=== PATIENT | female | born 2000 | race Caucasian/White ===

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

== ENCOUNTER 2019-01-13 10:58 | Emergency (ER) | payer OTHER ==
[2019-01-13 11:11] VITALS: BP 111/68
--- NOTE | 2019-01-13 12:15 | ED Physician Documentation ---
PD HPI URI - Stated complaint Stated Complaint: SORE THROAT - Chief complaint Chief Complaint: Heent - History obtained from History obtained from: Patient - History of Present Illness Timing - onset: Yesterday Timing duration: Days (2) Timing details: Abrupt onset, Still present Associated symptoms: Fever, Sore throat. No: Nasal congestion, Rhinorrhea, Dry cough, NVD Contributing factors: No: Sick contact Similar symptoms before: Diagnosis (had not had strep throat since teenager) Recently seen: Not recently seen Review of Systems Constitutional: reports: Fever, Chills Nose: denies: Rhinorrhea / runny nose, Congestion Throat: reports: Sore throat Respiratory: denies: Cough GI: denies: Nausea, Vomiting, Diarrhea Skin: denies: Rash, Lesions PD PAST MEDICAL HISTORY - Past Medical History Past Medical History: No Cardiovascular: None Respiratory: None Endocrine/Autoimmune: None - Past Surgical History Past Surgical History: No - Present Medications Home Medications: Ambulatory Orders Medication Instructions Recorded Confirmed Bcp Patch 01/13/19 Cephalexin [Keflex] 500 mg PO TID #21 capsule 01/13/19 Dexamethasone [Decadron] 4 mg PO DAILY #5 tablet 01/13/19 Hydrocodone/Acetaminophen [[place] 1 each PO Q6H PRN #12 tablet 01/13/19 5-325 Tablet] - Allergies Allergies/Adverse Reactions: Allergies Allergy/AdvReac Type Severity Reaction Status Date / Time Penicillins Allergy Unknown Verified 11/20/16 18:02 - Social History Does the pt smoke?: No Smoking Status: Never smoker Does the pt drink ETOH?: No Does the pt have substance abuse?: No - Immunizations Immunizations are current?: Yes PD ED PE NORMAL - Vitals Vital signs reviewed: Yes - General General: Alert and oriented X 3, No acute distress, Well developed/nourished - HEENT HEENT: Ears normal. No: Pharynx benign (marked erhythema with exudate and swelling, particularly left tonsil area. No peritonsillar edema per se. ) - Neck Neck: Supple, no meningeal sign, No adenopathy - Cardiac Cardiac: RRR, No murmur - Respiratory Respiratory: Clear bilaterally - Derm Derm: Normal color, Warm and dry - Extremities Extremities: No tenderness to palpate, Normal ROM s pain - Neuro Neuro: Alert and oriented X 3, No motor deficit, Normal speech Results - Vitals Vitals: Oxygen O2 Source Room air - Labs Labs: Microbiology 01/13/19 11:15 Group A Strep Throat Culture - Final Throat MIXED OROPHARYNGEAL RAMON PRESENT. NO BETA STREP PRESENT IN CULTURE. Laboratory Tests 01/13/19 11:15 Group A Strep Rapid Negative PD MEDICAL DECISION MAKING - ED course Complexity details: considered differential (this looks and acts like strep (02/19 [facility]) so will treat with abx pending culture. ), d/w patient Departure - Departure Disposition: 01 Home, Self Care Clinical Impression: Acute pharyngitis Qualifiers: Pharyngitis/tonsillitis etiology: unspecified etiology Qualified Code(s): J02.9 - Acute pharyngitis, unspecified Condition: Stable Record reviewed to determine appropriate education?: Yes Instructions: ED Strep Pharyngitis Poss Follow-Up: Destini Esqueda DO [Primary Care Provider] - Prescriptions: Cephalexin [Keflex] 500 mg PO TID #21 capsule Dexamethasone [Decadron] 4 mg PO DAILY #5 tablet Hydrocodone/Acetaminophen [[place] 5-325 Tablet] 1 each PO Q6H PRN #12 tablet PRN Reason: Pain Comments: This looks and sounds like a bacterial pharyngitis. We will treated as such with cephalexin and antibiotic for a week. Decadron steroid anti-inflammatory will help with the pain and swelling. Add Tylenol or hydrocodone if needed for pain short-term. It should be improving over a couple of days. 1-2 days off work and school as needed. Should be considered less infectious after a day on the antibiotics. Recheck if not improved over the next 3-5 days. Forms: Activity restrictions Discharge Date/Time: 01/13/19 12:42
[2019-01-13] MEDS ORDERED: IBUPROFEN 600 MG TABLET PO STA (12:22)
[2019-01-13] MEDS ORDERED: cephALEXin 250 MG CAPSULE PO STA (12:22)
[2019-01-13] MEDS ORDERED: DEXAMETHASONE 10 MG/ML VIAL PO STA (12:22)
== END 2019-01-13 12:42 | disposition home or self-care (01) ==
LOC: ED 10:58
DX: J02.9 Acute pharyngitis, unspecified (principal)
CPT/HCPCS: 87070; 87430; 99283; A9270

== ENCOUNTER 2019-08-11 10:08 | Emergency (ER) | payer OTHER, MEDICAID ==
--- NOTE | 2019-08-11 10:55 | ED Physician Documentation ---
PD HPI URI - Stated complaint Stated Complaint: SOA/NECK PX - Chief complaint Chief Complaint: Resp - History obtained from History obtained from: Patient - History of Present Illness Timing - onset: How many days ago (2-3) Timing duration: Days (2-3) Timing details: Abrupt onset, Still present Associated symptoms: Fever, Chills, Nasal congestion, Swollen nodes, Dry cough, Other (noted her heart rate fast at 100-120 per her watch (fitbit type) since last night.). 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 denies: Dyspnea, Wheezing GI: reports: Nausea. denies: Abdominal Pain, Vomiting, Diarrhea : denies: Dysuria, Frequency, Discharge Skin: denies: Rash Neurologic: reports: Generalized weakness, Headache (today). denies: Focal weakness, Numbness, Altered mental status Endocrine: reports: Weight loss (about 20 lbs in the past 3-4 months without intending to, same diet and foods (vegetarian) and activities.) PD PAST MEDICAL HISTORY - Past Medical History Past Medical History: Yes Cardiovascular: None Respiratory: None Endocrine/Autoimmune: None Other Past Medical History: low platelets - Past Surgical History Past Surgical History: No - Present Medications Home Medications: Ambulatory Orders Medication Instructions Recorded Confirmed Bcp Patch 01/13/19 Cephalexin [Keflex] 500 mg PO TID #21 capsule 08/11/19 dexAMETHasone [Decadron] 4 mg PO DAILY #5 tablet 08/11/19 - Allergies Allergies/Adverse Reactions: Allergies Allergy/AdvReac Type Severity Reaction Status Date / Time Penicillins Allergy Unknown Verified 08/11/19 10:14 - Social History Does the pt smoke?: No Smoking Status: Never smoker Does the pt drink ETOH?: No Does the pt have substance abuse?: No - Immunizations Immunizations are current?: Yes PD ED PE NORMAL - Vitals Vital signs reviewed: Yes - General General: Alert and oriented X 3, Well developed/nourished - HEENT HEENT: No: Pharynx benign (mild redness posteriorly without exudate nor swelling. ) - Neck Neck: Supple, no meningeal sign, Other (tender anterior adenopathy both sides, larger to the left.) - Cardiac Cardiac: No murmur, No rub. No: RRR (regular but tachycardic) - Respiratory Respiratory: Clear bilaterally - Abdomen Abdomen: Normal bowel sounds, Soft, Non tender, Non distended, No organomegaly - Back Back: No CVA TTP - Derm Derm: Normal color, Warm and dry - Extremities Extremities: Normal ROM s pain - Neuro Neuro: Alert and oriented X 3, No motor deficit, Normal speech Results - Vitals Vitals: Vital Signs - 24 hr 08/11/19 08/11/19 10:10 12:58 Temperature 37.1 C 37.3 C Heart Rate 120 H 88 Respiratory 18 20 Rate Blood Pressure 134/100 H 121/78 O2 Saturation 100 98 Oxygen O2 Source Room air - Labs Labs: Laboratory Tests 08/11/19 08/11/19 08/11/19 11:30 11:30 11:52 WBC 9.4 RBC 4.44 Hgb 13.0 Hct 39.3 MCV 88.5 MCH 29.3 MCHC 33.1 RDW 12.8 Plt Count 249 MPV 9.5 Neut # (Auto) 7.2 H Lymph # (Auto) 1.0 L [place] # (Auto) 0.9 Eos # (Auto) 0.1 Baso # (Auto) 0.1 Absolute Nucleated RBC 0.00 Nucleated RBC % 0.0 Sodium Potassium Chloride Carbon Dioxide Anion Gap BUN Creatinine Estimated GFR (MDRD) Glucose Calcium Total Bilirubin AST ALT Alkaline Phosphatase Total Protein Albumin Globulin Albumin/Globulin Ratio Lipase TSH Infectious [place] Assay Influenza A (Rapid) Negative Influenza B (Rapid) Negative Group A Strep Rapid Negative 08/11/19 08/11/19 08/11/19 11:52 11:52 11:52 WBC RBC Hgb Hct MCV MCH MCHC RDW Plt Count MPV Neut # (Auto) Lymph # (Auto) [place] # (Auto) Eos # (Auto) Baso # (Auto) Absolute Nucleated RBC Nucleated RBC % Sodium 141 Potassium 3.9 Chloride 106 Carbon Dioxide 27 Anion Gap 8.0 BUN 12 Creatinine 0.7 Estimated GFR (MDRD) 107 Glucose 93 Calcium 9.2 Total Bilirubin 0.4 AST 15 ALT 14 Alkaline Phosphatase 46 Total Protein 7.7 Albumin 3.9 Globulin 3.8 Albumin/Globulin Ratio 1.0 Lipase 26 TSH 1.89 Infectious [place] Assay NEGATIVE Influenza A (Rapid) Influenza B (Rapid) Group A Strep Rapid PD MEDICAL DECISION MAKING - ED course Complexity details: reviewed results, re-evaluated patient (labs are good. She does have tender nodes at neck. Can treat for adenitis. ), considered differential (seems likely viral, but will test for flu, mono, strep given the fever and neck adenopathy. will get labs re: recent weight loss as well. ), d/w patient Departure - Departure Disposition: 01 Home, Self Care Clinical Impression: Acute cervical adenitis, Abnormal weight loss Condition: Stable Record reviewed to determine appropriate education?: Yes Instructions: ED Cervical Adenitis Abx Tx Follow-Up: Destini Esqueda DO [Primary Care Provider] - Prescriptions: Cephalexin [Keflex] 500 mg PO TID #21 capsule dexAMETHasone [Decadron] 4 mg PO DAILY #5 tablet Comments: The test we did here appear normal. No obvious signs of major illness. The swollen glands/lymph nodes can be a viral illness acutely or sometimes are bacterial. We will treated with anti-inflammatories and antibiotics as prescribed. Stay well-hydrated. Use Tylenol or ibuprofen if needed for fevers or pains. Recheck if not improved over the next several days to a week. Off work a few days as needed. Forms: Activity restrictions Discharge Date/Time: 08/11/19 13:03
[2019-08-11 11:59] LABS: BASOPHILS # (AUTO) 0.1 10^3/uL (0.0-0.1); BASOPHILS % (AUTO) 0.5 %; EOSINOPHILS # (AUTO) 0.1 10^3/uL (0.0-0.7); EOSINOPHILS % (AUTO) 1.3 %; LYMPHOCYTES % (AUTO) 10.5 %; MEAN CORPUSCULAR HEMOGLOBIN 29.3 pg (27.0-31.0); MEAN CORPUSCULAR HGB CONC 33.1 g/dL (32.0-36.0); MEAN CORPUSCULAR VOLUME 88.5 fL (81.0-99.0); MEAN PLATELET VOLUME 9.5 fL (7.9-10.8); MONOCYTES # (AUTO) 0.9 10^3/uL (0.0-1.0); NEUTROPHILS # (AUTO) 7.2 10^3/uL (1.5-6.6); NEUTROPHILS % (AUTO) 77.3 %; PLT - PLATELET COUNT 249 10^3/uL (130-450); RED BLOOD COUNT 4.44 10^6/uL (4.20-5.40); RED CELL DISTRIBUTION WIDTH 12.8 % (12.0-15.0); WHITE BLOOD COUNT 9.4 x10^3/uL (4.8-10.8)
[2019-08-11 12:09] LABS: ALBUMIN 3.9 g/dL (3.2-5.5); BILIRUBIN,TOTAL 0.4 mg/dL (0.2-1.0); CALCIUM 9.2 mg/dL (8.5-10.3); CREATININE 0.7 mg/dL (0.4-1.0); TOTAL PROTEIN 7.7 g/dL (6.7-8.2)
[2019-08-11] MEDS ORDERED: DEXAMETHASONE 10 MG/ML VIAL PO STA (12:50)
[2019-08-11] MEDS ORDERED: cephALEXin 250 MG CAPSULE PO STA (12:50)
[2019-08-11] MEDS ORDERED: CHERRY SYRUP 10 ML UDC PO ONE (12:50)
[2019-08-11 12:59] VITALS: BP 121/78
== END 2019-08-11 13:03 | disposition home or self-care (01) ==
LOC: ED 10:08
DX: L04.0 Acute lymphadenitis of face, head and neck (principal); R63.4 Abnormal weight loss
CPT/HCPCS: 36415; 83690; 86308; 87070; 87275; 87276; 87430; 99283; A9270; 80053; 84443; 85025

== ENCOUNTER 2019-11-18 15:44 | Emergency (ER) | payer OTHER, MEDICAID ==
[2019-11-18] MEDS ORDERED: HYDROcod/ACETAM 5/325 MG TABLET PO STA (17:33)
--- NOTE | 2019-11-18 17:34 | ED Physician Documentation ---
PD HPI URI - Stated complaint Stated Complaint: SARY/HEADACHE/BODYACHES - Chief complaint Chief Complaint: Fever - History obtained from History obtained from: Patient (Sick for about 45 hours with cough, sore throat, headache, fevers chills and body aches. Multiple sick contacts at work.) Review of Systems Constitutional: reports: Fever, Chills, Myalgias, Fatigue Ears: denies: Ear pain Nose: reports: Rhinorrhea / runny nose Throat: denies: Sore throat Respiratory: reports: Cough. 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 : None HEENT: None Psych: None Musculoskeletal: None Derm: None - Past Surgical History Past Surgical History: No - Present Medications Home Medications: Ambulatory Orders Medication Instructions Recorded Confirmed Bcp Patch 01/13/19 Cephalexin [Keflex] 500 mg PO TID #21 capsule 08/11/19 dexAMETHasone [Decadron] 4 mg PO DAILY #5 tablet 08/11/19 hydrOXYzine pamoate [Hydroxyzine 25 - 50 mg PO BID PRN #10 capsule 08/14/19 Pamoate] Hydrocodone/Acetaminophen 1 - 2 each PO Q6H PRN #10 tablet 11/18/19 [Hydrocodon-Acetaminophen 5-325] Ibuprofen [Motrin] 800 mg PO Q8H PRN #30 tablet 11/18/19 - Allergies Allergies/Adverse Reactions: Allergies Allergy/AdvReac Type Severity Reaction Status Date / Time Penicillins Allergy Unknown Verified 11/18/19 15:59 - Social History Does the pt smoke?: Yes Smoking Status: Current every day smoker Does the pt drink ETOH?: No Does the pt have substance abuse?: No - Immunizations Immunizations are current?: Yes - POLST Patient has POLST: No PD ED PE NORMAL - Vitals Vital signs reviewed: Yes - General General: Alert and oriented X 3, No acute distress - HEENT HEENT: PERRL, Ears normal, Moist mucous membranes, Pharynx benign - Neck Neck: Supple, no meningeal sign, No bony TTP - Cardiac Cardiac: RRR, No murmur - Respiratory Respiratory: No respiratory distress, Clear bilaterally - Abdomen Abdomen: Normal bowel sounds, Soft, Non tender - Back Back: No CVA TTP, No spinal TTP - Derm Derm: Normal color, Warm and dry - Extremities Extremities: No edema, No calf tenderness / cord - Neuro Neuro: Alert and oriented X 3, Normal speech - Psych Psych: Normal mood, Normal affect Results - Vitals Vitals: Vital Signs - 24 hr 11/18/19 15:56 Temperature 39.6 C H Heart Rate 153 H Respiratory 18 Rate Blood Pressure 141/97 H O2 Saturation 99 Oxygen O2 Source Room air - Labs Labs: Laboratory Tests 11/18/19 16:03 Influenza A (Rapid) POSITIVE H Influenza B (Rapid) Negative PD MEDICAL DECISION MAKING - ED course ED course: We discussed the pros and cons of Tamiflu under the circumstances, and she declined, just needing something stronger for the headache and a work note. Departure - Departure Disposition: 01 Home, Self Care Clinical Impression: Influenza Condition: Good Record reviewed to determine appropriate education?: Yes Instructions: ED Flu Prescriptions: Hydrocodone/Acetaminophen [Hydrocodon-Acetaminophen 5-325] 1 - 2 each PO Q6H PRN #10 tablet PRN Reason: pain Ibuprofen [Motrin] 800 mg PO Q8H PRN #30 tablet PRN Reason: PAIN &/OR FEVER Forms: Activity restrictions
[2019-11-18 17:37] VITALS: BP 120/77
== END 2019-11-18 17:42 | disposition home or self-care (01) ==
LOC: ED 15:44
DX: J10.1 Influenza due to other identified influenza virus with other respiratory manifestations (principal); F17.200 Nicotine dependence, unspecified, uncomplicated
CPT/HCPCS: 87275; 87276; 99283; A9270

== ENCOUNTER 2021-03-29 08:29 | Outpatient (CLI) | payer MEDICAID, OTHER ==
[2021-03-29 12:19] LABS: BASOPHILS # (AUTO) 0.1 10^3/uL (0.0-0.1); BASOPHILS % (AUTO) 1.1 %; EOSINOPHILS # (AUTO) 0.2 10^3/uL (0.0-0.7); EOSINOPHILS % (AUTO) 3.6 %; HCT - HEMATOCRIT 40.2 % (37.0-47.0); HGB - HEMOGLOBIN 12.7 g/dL (12.0-16.0); LYMPHOCYTES # (AUTO) 1.7 10^3/uL (1.5-3.5); LYMPHOCYTES % (AUTO) 36.4 %; MEAN CORPUSCULAR HEMOGLOBIN 27.1 pg (27.0-31.0); MEAN CORPUSCULAR HGB CONC 31.6 g/dL (32.0-36.0); MEAN CORPUSCULAR VOLUME 85.7 fL (81.0-99.0); MEAN PLATELET VOLUME 10.2 fL (7.9-10.8); MONOCYTES # (AUTO) 0.6 10^3/uL (0.0-1.0); MONOCYTES % (AUTO) 12.1 %; NEUTROPHILS # (AUTO) 2.2 10^3/uL (1.5-6.6); NEUTROPHILS % (AUTO) 46.6 %; PLT - PLATELET COUNT 284 10^3/uL (130-450); RED BLOOD COUNT 4.69 10^6/uL (4.20-5.40); RED CELL DISTRIBUTION WIDTH 13.6 % (12.0-15.0); WHITE BLOOD COUNT 4.7 x10^3/uL (4.8-10.8)
[2021-03-29 12:22] LABS: ALBUMIN 4.3 g/dL (3.2-5.5); ALBUMIN/GLOBULIN RATIO 1.3 (1.0-2.2); BILIRUBIN,TOTAL 0.5 mg/dL (0.2-1.0); CALCIUM 9.3 mg/dL (8.5-10.3); CREATININE 0.6 mg/dL (0.4-1.0); TOTAL PROTEIN 7.7 g/dL (6.7-8.2)
[2021-03-29 12:30] LABS: HCG,QUALITATIVE BLOOD NEGATIVE
[2021-03-29 12:35] LABS: THYROID STIMULATING HORMONE 3.4 uIU/mL (0.34-5.60)
== END 2021-03-29 23:59 | disposition home or self-care (01) ==
LOC: LAB.WCP 08:29
PROVIDERS: ATTEND Family Medicine
DX: R00.0 Tachycardia, unspecified (principal); N92.6 Irregular menstruation, unspecified
CPT/HCPCS: 36415; 80053; 83735; 84443; 84703; 85025

== ENCOUNTER 2021-04-27 17:29 | Outpatient (CLI) | payer OTHER ==
--- NOTE | 2021-04-27 11:17 | XRAY Report ---
PROCEDURE: Foot 3 View BILAT INDICATIONS: BUNION BILATERAL FEET TECHNIQUE: 3 views of the foot were acquired. COMPARISON: None FINDINGS: Bones: Both great toes demonstrate moderate hallux valgus degeneration. No significant degenerative changes are identified. No fractures or dislocations. No suspicious bony lesions. Soft tissues: No tibiotalar joint effusion. Achilles tendon appears normal. IMPRESSION: 1. Hallux valgus of both great toes. 2. No acute abnormality. Reviewed by: Ramon Kumar on 04/27/2021 11:15 AM PDT Approved by: Ramon Kumar on 04/27/2021 11:15 AM PDT Station ID: [id number]
== END 2021-04-27 23:59 | disposition home or self-care (01) ==
LOC: DI.N 17:29
PROVIDERS: ATTEND Orthopaedic Surgery
DX: M20.12 Hallux valgus (acquired), left foot (principal); M20.11 Hallux valgus (acquired), right foot

== ENCOUNTER 2022-08-17 15:47 | Outpatient (CLI) | payer OTHER ==
[2022-08-18 00:02] LABS: CHLAMYDIA TRACHOMATIS DNA NEGATIVE (NEGATIVE); NEISSERIA GONORRHOEAE DNA NEGATIVE (NEGATIVE); TRICHOMONAS VAGINALIS DNA NEGATIVE (NEGATIVE)
== END 2022-08-17 15:48 | disposition home or self-care (01) ==
LOC: LAB.WC 15:47
PROVIDERS: ATTEND Nurse Practitioner
DX: Z11.3 Encounter for screening for infections with a predominantly sexual mode of transmission (principal)
CPT/HCPCS: 87491; 87591; 87661